=== PATIENT | female | born 1975 | race Caucasian/White ===

== ENCOUNTER 2020-12-13 15:36 | Emergency (ER) | payer MEDICAID ==
[~2020-12-13] VITALS: Ht 154.9 cm; Wt 73.0 kg
[2020-12-13 15:41] VITALS: BP 138/77
== END 2020-12-13 19:00 | disposition left against medical advice (07) ==
LOC: ER 18:42
DX: Z53.21 Procedure and treatment not carried out due to patient leaving prior to being seen by health care provider (principal)